=== PATIENT | male | born 1985 | race Caucasian/White ===

== ENCOUNTER 2022-07-21 13:30 | Emergency (ER) | payer OTHER ==
[2022-07-21 13:39] VITALS: BP 135/77; PULSE 79; RESP 20; TEMP 98.3; BMI 31.8
[2022-07-21] MEDS ORDERED: DIPHTH,PERTUSS(ACELL),TET 0.5 ML DISP.SYRIN IM ONE ×2 (14:16→14:40)
== END 2022-07-21 15:04 | disposition home or self-care (01) ==
LOC: JERFT 13:30
PROC: 0HQFXZZ Repair Right Hand Skin, External Approach (ICD-10-PCS; principal; 2022-07-21)
PROC: 3E0234Z Introduction of Serum, Toxoid and Vaccine into Muscle, Percutaneous Approach (ICD-10-PCS; 2022-07-21)
DX: S61.011A Laceration without foreign body of right thumb without damage to nail, initial encounter (principal); W25.XXXA Contact with sharp glass, initial encounter; Y99.0 Civilian activity done for income or pay
CPT/HCPCS: 90715; 99282-25